=== PATIENT | male | born 1975 | race Caucasian/White ===

== ENCOUNTER → 2017-10-18 16:00 | Outpatient (CLI) | payer OTHER, SELFPAY | PROVIDERS: Visit Provider Otolaryngology | DX: J02.9 Acute pharyngitis, unspecified (principal) | CPT/HCPCS: 87070 ==

== ENCOUNTER → 2018-01-02 15:34 | Outpatient (CLI) | payer OTHER, SELFPAY ==
--- NOTE | 2018-01-02 15:42 | RAD_ITS ---
STUDY: X-RAY - LUMBAR SPINE REASON FOR EXAM: Male, 42 years old. chronic back pain TECHNIQUE: 5 view(s) of the lumbar spine were obtained. # of Images: 5 COMPARISON: None FINDINGS: Normal lumbar lordosis. There is no substantial scoliosis. There is a normal alignment of the vertebrae. Normal vertebral bodies and endplates. There is multi-level degenerative disc disease with multi-level disc space narrowing at T12-L1, L3-4 and L5-S1. The soft tissue structures are unremarkable. RAD/L/S Spine Min 4 Views IMPRESSION: Degenerative changes of the spine, as detailed above. Electronically Signed: Julissa Dean MD at 15:31 EDT Tel , Service support ,
== END ==
PROVIDERS: Family Provider Family Medicine; PCP Family Medicine; Referring Provider Family Medicine; Visit Provider Family Medicine
DX: M54.9 Dorsalgia, unspecified (principal); G89.29 Other chronic pain
CPT/HCPCS: 72110

== ENCOUNTER → 2018-02-28 12:03 | Outpatient (CLI) | payer OTHER, SELFPAY ==
--- NOTE | 2018-02-28 | LES_PTH ---
PATIENT: ARNOL PETERSON Jr. LOC: [place] U#:[id number] AGE/SX: 49/M ROOM: RE02/28/[address]: Dr. Noe Munroe MD : 1975 BED: DIS: SPEC #: [id number] RECD: 02/28/18 14:37 STATUS: CONI BUFFY #: [id number] LONI: 02/28/18 00:[address]: Noe Munroe DEPT: SURGICAL PATHOLOGY RECD BY: Rohan Frazier Tissues: Skin of arm Procedures: Surgery Specimen Level IV HEADER OPERATION: Left arm excision PRE-OP DIAGNOSIS: Left arm lesion TISSUE SUBMITTED: Left arm lesion MICROSCOPIC DIAGNOSIS Left arm lesion, excisional biopsy: Basal cell carcinoma, completely excised in the planes of sections examined. Solar elastosis. SJ:etelvina 03/03/18 COMMENT Case has been reviewed in consultation with Dr. Paredes who concurs with the above diagnosis. IDC:AM MICROSCOPIC DESCRIPTION Slides are reviewed. GROSS DESCRIPTION Received in fixative is one container labeled with the patient's name and designated left arm lesion. The specimen consists of a piece of fleiciano-white skin ellipse measuring 2.5 x 1 cm and up to 0.3 cm in thickness. The specimen is inked, serially sectioned and submitted entirely in one cassette. / SJ:rg 02/28/18 TC:0 CPT: 07419
--- OUTSIDE RECORDS SUMMARY | 2018-04-16 06:49 | XMS RPT_ITS ---
:1975 Author Organization [facility] Care Team Providers Name Role Phone Noe Munroe Attending Unavailable Noe Munroe Referring Unavailable Noe Munroe Primary Care Unavailable Noe Munroe Attending Unavailable Noe Munroe Referring Unavailable Noe Munroe Primary Care Unavailable Ned Barragan Attending Unavailable Jagdeep Iglesias Primary Care Unavailable Ned Barragan Referring Unavailable Noe Munroe Attending Unavailable Noe Munroe Referring Unavailable Noe Munroe Primary Care Unavailable Noe Munroe Attending Unavailable Noe Munroe Referring Unavailable Noe Munroe Primary Care Unavailable PROBLEMS PROBLEMS DATE TYPE CONDITION / CODE ATTENDING STATUS SOURCE 04/08/2018 Unknown 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, Community unspecified / Hospital G62.9(ICD-10) Repository 01/02/2018 Unknown M54.9 - Noe Munroe Active [place] Dorsalgia, Community unspecified / Hospital M54.9(ICD-10) Repository 10/19/2017 Unknown J02.9 - Acute Wartmann, Active [place] pharyngitis, Ned Community unspecified / Hospital J02.9(ICD-10) Repository PROCEDURES PROCEDURES No Procedure Records FoundRESULTS RESULTS VITAMIN B1, THIAMINE Collected: 03/28/2018 Status: F Source: [place] 4:49 PM [facility] REPOSITORY Order Comment: Comments: [id number] B6 RF PROTECT FROM LIGHT TYPE CODE TESTS RESULT OUT OF RANGE REFERENCE UNITS LAB L3300.8000 Normal VIT B1 Result Comment: TEST RESULT LIMITS Vitamin B1 (Thiamine), Blood Vit. B1, Whole Blood 125.9 nmol/L 66.5 - 200.0 Disclaimer: This test was developed and its performance characteristics determined by [facility]. It has not been cleared or approved by the Food and Drug Administration. TESTING PERFORMED AT [facility]. ORIGINAL REPORT ON FILE IN LAB CONTAINS ADDITIONAL TEST SITE INFORMATION. Performed By: #### L3300.8000 #### [facility] (refer to report for specific site) refer to report for address and phone number CERV SPINE 4 OR 5 Observed: 03/28/2018 Status: F Source: [place] VIEWS 4:46 PM [facility] REPOSITORY [facility] Imaging Services [address] [place] [address] Cerv Spine 4 or 5 Views MR#: [id number] Acct: [id number] Name: PETERSONDIANNARNOL LAURA Connelly Rep #: [id number] : 1975 M 42 From: Nicholas Schmitt MD PCP: Noe Munroe MD Status: REG CLI Study: Cerv Spine 4 or 5 Views Date of Exam: 03/28/18 Exam# [id number] Ordering Dr: Noe Munroe MD HISTORY: Back Pain COMPARISON: None FINDINGS: XR Spine Cervical 5 Views: Straightening of the cervical spine with mild reversal of the normal cervical lordosis at the C5-6 level. Cervical vertebra are normal in height. No fracture or suspicious bony lesion. C5-6 mild disc space narrowing accompanied by minor anterior endplate spurring. The posterior elements appear intact. Neural foramina are patent. The C1- C2 relationship is on remarkable. RAD/Cerv Spine 4 or 5 Views IMPRESSION: C5-6 early degenerative disc disease with loss of the normal cervical lordosis at 0816 Reported and signed by: Nicholas Schmitt MD Electronically Signed: Nicholas Schmitt, at 8:15 EST Tel , Service support , CC: Noe Munroe MD Otr Owner Operator: Signed SHOULDER MIN 2 VIEWS Observed: 03/28/2018 Status: F Source: [place] 4:46 PM [facility] REPOSITORY [facility] Imaging Services [address] [place] [address] Shoulder min 2 Views MR#: [id number] Acct: [id number] Name: ARNOL PETERSON JrNi Rep #: [id number] : 1975 M 42 From: Lulu Gil MD PCP: Noe Munroe MD Status: REG CLI Study: Shoulder min 2 Views Date of Exam: 03/28/18 Exam# [id number] Ordering Dr: Noe Munroe MD STUDY: X-RAY - RIGHT SHOULDER REASON FOR EXAM: Male, 42 years old. Pain TECHNIQUE: 4 view(s) of the shoulder. COMPARISON: None. FINDINGS: Normal glenohumeral articulation. Normal acromioclavicular joint. Normal acromion. Normal humeral head and visualized proximal humerus. The soft tissue structures are unremarkable. Radiopaque density over the right apex 0.76 cm. Normal visualized pulmonary apex. RAD/Shoulder min 2 Views IMPRESSION: Normal x-ray examination of the shoulder. Radiopaque foreign body. Electronically Signed: Lulu Gil MD at 1:54 EST , Service support , CC: Noe Munroe MD Otr Owner Operator: Signed VITAMIN B12 Collected: 03/28/2018 Status: F Source: [place] 4:45 PM [facility] REPOSITORY TYPE CODE TESTS RESULT OUT OF RANGE REFERENCE UNITS LAB L503.0105 211-911 pg/mL Normal Vitamin B12 829 Performed By: #### L503.0105 #### [facility] [address] [place], [address] LESION (CHOOSE SITE) Observed: 02/28/2018 Status: F Source: [place] 12:00 AM [facility] REPOSITORY Patient: ARNOL PETERSON Jr. : 1975 (42/M) Acct Num: [id number] Phys: Noe Munroe MD Unit Num: [id number] Loc: LABSPEC Specimen: [id number] Received: 02/28/18 - 1437 Spec Type: Lesion TISSUES 1 TISSUES: Skin of arm COMMENT Case has been reviewed in consultation with Dr. Paredes who concurs with the above diagnosis. IDC:AM GROSS DESCRIPTION Received in fixative is one container labeled with the patient's name and designated left arm lesion. The specimen consists of a piece of feliciano-white skin ellipse measuring 2.5 x 1 cm and up to 0.3 cm in thickness. The specimen is inked, serially sectioned and submitted entirely in one cassette. / ROBYN:etelvina 02/28/18 TC:0 CPT: 92147 HEADER OPERATION: Left arm excision PRE-OP DIAGNOSIS: Left arm lesion TISSUE SUBMITTED: Left arm lesion MICROSCOPIC DESCRIPTION Slides are reviewed. MICROSCOPIC DIAGNOSIS Left arm lesion, excisional biopsy: Basal cell carcinoma, completely excised in the planes of sections examined. Solar elastosis. ROBYN:etelvina 03/03/18 Signed Carlos Herrera MD 03/03/18 <signature on file> Performed By: #### PLES #### [facility] [address] [place], [address] L/S SPINE MIN 4 Observed: 01/02/2018 Status: F Source: [place] VIEWS 3:42 PM [facility] REPOSITORY [facility] Imaging Services [address] [place] [address] L/S Spine Min 4 Views MR#: [id number] Acct: [id number] Name: ARNOL PETERSON Rep #: [id number] : 1975 M 42 From: Julissa Dean MD PCP: Noe Munroe MD Status: REG CLI Study: L/S Spine Min 4 Views Date of Exam: 01/02/18 Exam# [id number] Ordering Dr: Noe Munroe MD STUDY: X-RAY - LUMBAR SPINE REASON FOR EXAM: Male, 42 years old. chronic back pain TECHNIQUE: 5 view(s) of the lumbar spine were obtained. # of Images: 5 COMPARISON: None FINDINGS: Normal lumbar lordosis. There is no substantial scoliosis. There is a normal alignment of the vertebrae. Normal vertebral bodies and endplates. There is multi-level degenerative disc disease with multi-level disc space narrowing at T12- L1, L3-4 and L5-S1. The soft tissue structures are unremarkable. RAD/L/S Spine Min 4 Views IMPRESSION: Degenerative changes of the spine, as detailed above. Electronically Signed: Julissa Dean MD at 15:31 EDT Tel , Service support , CC: Noe Munroe MD Otr Owner Operator: Signed Observed: 10/18/2017 Status: F Source: [place] CULTURE, THROAT 10:50 AM [facility] REPOSITORY Culture, Throat Mixed normal respiratory lala. No Haemophilus, Streptococcus pneumoniae, beta-hemolytic Streptococcus or Staphylococcus aureus isolated. Performed By: #### M100.1000 #### [facility] [address] [place], [address] ALLERGIES ALLERGIES No Allergies Records FoundENCOUNTERS ENCOUNTERS ADMIT/DISCHARGE ACCOUNT ADMITTING ENCOUNTER LOCATION SOURCE NUMBER CLASS 04/04/2018 [id number] Ambulatory [place] ing:MTLAB Repository 03/28/[id number] ing:MTLAB Repository 02/28/2018 [id number] [facility] ing:LABSPEC Repository 01/02/2018 [id number] Ambulatory [place] [facility] ing:MTRAD Repository 10/18/2017 [id number] [facility] ing:LABSPEC Repository PAYERS PAYERS ENCOUNTER GUARANTOR PAYER SUBSCRIBER SOURCE 04/04/2018 ARNOL SANCHEZ [facility] ARNOL PETERSON Jr.40 Insurance:MEDICAL PETERSON : [facility] [id number] [address]Mqn: Number: Repository [id number] (HP) Date:3164-14-38ZK[address] [address]HQ: 04/04/2018 Secondary NOT GIVENUNK [place] Insurance:SELF PAY [facility] Number: Effective Repository Date:2018-04-04 03/28/2018 ARNOL SANCHEZ [facility].40 Insurance:MEDICAL PETERSON JrNi: [facility] [id number] Medical Center [address]Uve: Number: Repository [id number] (HP) Date:2185-89-23NE [address] [address]MJ: 03/28/2018 Secondary NOT GIVENUNK [place] Insurance:SELF PAY [facility] Number: Effective Repository Date:2018-03-28 02/28/2018 [facility] ARNOL PETERSON Jr.40 Insurance:MEDICAL PETERSON Jr.: Community FORCE [facility] [id number] Medical Center [address]Rlq: Number: Repository [id number] (HP) Date:7417-42-30JJ [place] [id number]: 02/28/2018 Secondary NOT GIVENUNK [facility] Insurance:SELF PAY [facility] Number: Effective Repository Date:2018-02-28 01/02/2018 [facility] LAURA LINDERE40 FORCE Insurance:MEDICAL STEELEDOB: [facility] [id number] Hospital [address]Ejn: (330) Number: Repository [phone] () [id number] Date:8977-59-99NM [address] [address]XB: 01/02/2018 Secondary NOT GIVENUNK [place] Insurance:SELF PAY [facility] Number: Effective Repository Date:2018-01-02 10/18/2017 [facility] LAURA LINDERE40 FORCE Insurance:MEDICAL STEELEDOB: [facility] [id number] Hospital [address]Cgn: (330) Number: Repository [phone] () [id number] Date:0923-06-91CJ [address] [address]BQ: 10/18/2017 Secondary NOT GIVENUNK [place] Insurance:SELF PAY [facility] Number: Effective Repository Date:2017-10-18
== END ==
PROVIDERS: Family Provider Family Medicine; PCP Family Medicine; Referring Provider Family Medicine; Visit Provider Family Medicine
DX: C44.619 Basal cell carcinoma of skin of left upper limb, including shoulder (principal); L57.8 Other skin changes due to chronic exposure to nonionizing radiation
CPT/HCPCS: 88305

== ENCOUNTER → 2018-03-28 16:42 | Outpatient (CLI) | payer OTHER, SELFPAY ==
--- NOTE | 2018-03-28 16:45 | RAD_ITS ---
HISTORY: Back Pain COMPARISON: None FINDINGS: XR Spine Cervical 5 Views: Straightening of the cervical spine with mild reversal of the normal cervical lordosis at the C5-6 level. Cervical vertebra are normal in height. No fracture or suspicious bony lesion. C5-6 mild disc space narrowing accompanied by minor anterior endplate spurring. The posterior elements appear intact. Neural foramina are patent. The C1-C2 relationship is on remarkable. RAD/Cerv Spine 4 or 5 Views IMPRESSION: C5-6 early degenerative disc disease with loss of the normal cervical lordosis at 0816 Reported and signed by: Nicholas Schmitt MD Electronically Signed: Nicholas Schmitt, at 8:15 EST Tel , Service support ,
--- NOTE | 2018-03-28 16:45 | RAD_ITS ---
STUDY: X-RAY - RIGHT SHOULDER REASON FOR EXAM: Male, 42 years old. Pain TECHNIQUE: 4 view(s) of the shoulder. COMPARISON: None. FINDINGS: Normal glenohumeral articulation. Normal acromioclavicular joint. Normal acromion. Normal humeral head and visualized proximal humerus. The soft tissue structures are unremarkable. Radiopaque density over the right apex 0.76 cm. Normal visualized pulmonary apex. RAD/Shoulder min 2 Views IMPRESSION: Normal x-ray examination of the shoulder. Radiopaque foreign body. Electronically Signed: Lulu Gil MD at 1:54 EST , Service support ,
[2018-03-28 18:22] LABS: Vitamin B12 829 pg/mL (211-911)
== END ==
PROVIDERS: Family Provider Family Medicine; PCP Family Medicine; Referring Provider Family Medicine; Visit Provider Family Medicine
DX: M54.2 Cervicalgia (principal); M75.80 Other shoulder lesions, unspecified shoulder; G62.9 Polyneuropathy, unspecified
CPT/HCPCS: 72050; 73030; 82607; 84425

== ENCOUNTER → 2018-04-04 10:22 | Outpatient (CLI) | payer OTHER, SELFPAY ==
--- OUTSIDE RECORDS SUMMARY | 2018-06-08 19:13 | XMS RPT_ITS ---
[...] 01/02/2018 Unknown M54.9 - Noe Munroe Active [place] Dorsalgia, Community unspecified / Hospital M54.9(ICD-10) Repository 10/19/2017 Unknown J02.9 - Acute Wartmann, Active [place] pharyngitis, Ned Community unspecified / Hospital J02.9(ICD-10) Repository PROCEDURES PROCEDURES No Procedure Records FoundRESULTS RESULTS VITAMIN B1, THIAMINE Collected: 03/28/2018 Status: F Source: [place] 4:49 PM [facility] REPOSITORY Order Comment: Comments: [id number] B6 RF PROTECT FROM LIGHT TYPE CODE TESTS RESULT OUT OF RANGE REFERENCE UNITS LAB L3300.8000 Normal VIT B1 Result Comment: TEST RESULT LIMITS Vitamin B1 (Thiamine), Blood Vit. B1, Whole Blood 125.9 nmol/L 66.5 - 200.0 Disclaimer: This test was developed and its performance characteristics determined by [facility]. It has not been cleared or approved by the Food and Drug Administration. TESTING PERFORMED AT [facility]. ORIGINAL REPORT ON FILE IN LAB CONTAINS ADDITIONAL TEST SITE INFORMATION. Performed By: #### L3300.8000 #### [facility] (refer to report for specific site) refer to report for address and phone number CERV SPINE 4 OR 5 Observed: 03/28/2018 Status: F Source: [place] VIEWS 4:46 PM [facility] REPOSITORY [facility] Imaging Services [address] [place] [address] Cerv Spine 4 or 5 Views MR#: [id number] Acct: [id number] Name: PETERSONDIANNARNOL LAURA Connelly Rep #: [id number] : 1975 M 42 From: Nicholas Schmitt MD PCP: Noe Munroe MD Status: REG CLI Study: Cerv Spine 4 or 5 Views Date of Exam: 03/28/18 Exam# [id number] Ordering Dr: Noe Munroe MD HISTORY: Back [...] Service support , CC: Noe Munroe MD Deputy Sheriff: Signed SHOULDER MIN 2 VIEWS Observed: 03/28/2018 Status: F Source: [place] 4:46 PM [facility] REPOSITORY [facility] Imaging Services [address] [place] [address] Shoulder min 2 Views MR#: [id number] Acct: [id number] Name: ARNOL PETERSON JrNi Rep #: [id number] : 1975 M 42 From: Lulu Gil MD PCP: Noe Munroe MD Status: REG CLI Study: Shoulder min 2 Views Date of Exam: 03/28/18 Exam# [id number] Ordering Dr: Noe Munroe MD STUDY: X-RAY [...] Service support , CC: Noe Munroe MD Deputy Sheriff: Signed VITAMIN B12 Collected: 03/28/2018 Status: F Source: [place] 4:45 PM [facility] REPOSITORY TYPE CODE TESTS RESULT OUT OF RANGE REFERENCE UNITS LAB L503.0105 211-911 pg/mL Normal Vitamin B12 829 Performed By: #### L503.0105 #### [facility] [address] [place], [address] LESION (CHOOSE SITE) Observed: 02/28/2018 Status: F Source: [place] 12:00 AM [facility] REPOSITORY Patient: ARNOL PETERSON Jr. : 1975 (42/M) Acct Num: [id number] Phys: Noe Munroe MD Unit Num: [id number] Loc: LABSPEC Specimen: [id number] Received: 02/28/18 - 1437 Spec Type: Lesion [...] one cassette. / ROBYN:etelvina 02/28/18 TC:0 CPT: 94373 HEADER OPERATION: Left arm excision PRE-OP DIAGNOSIS: Left arm lesion TISSUE SUBMITTED: Left arm lesion MICROSCOPIC DESCRIPTION Slides are reviewed. MICROSCOPIC DIAGNOSIS Left arm lesion, excisional biopsy: Basal cell carcinoma, completely excised in the planes of sections examined. Solar elastosis. ROBYN:etelvina 03/03/18 Signed Carlos Herrera MD 03/03/18 <signature on file> Performed By: #### PLES #### [facility] [address] [place], [address] L/S SPINE MIN 4 Observed: 01/02/2018 Status: F Source: [place] VIEWS 3:42 PM [facility] REPOSITORY [facility] Imaging Services [address] [place] [address] L/S Spine Min 4 Views MR#: [id number] Acct: [id number] Name: ARNOL PETERSON Rep #: [id number] : 1975 M 42 From: Julissa Dean MD PCP: Noe Munroe MD Status: REG CLI Study: L/S Spine Min 4 Views Date of Exam: 01/02/18 Exam# [id number] Ordering Dr: Noe Munroe MD STUDY: X-RAY [...] Service support , CC: Noe Munroe MD Deputy Sheriff: Signed Observed: 10/18/2017 Status: F Source: [place] CULTURE, THROAT 10:50 AM [facility] REPOSITORY Culture, Throat Mixed normal respiratory lala. No Haemophilus, Streptococcus pneumoniae, beta-hemolytic Streptococcus or Staphylococcus aureus isolated. Performed By: #### M100.1000 #### [facility] [address] [place], [address] ALLERGIES ALLERGIES No Allergies Records FoundENCOUNTERS ENCOUNTERS ADMIT/DISCHARGE ACCOUNT ADMITTING ENCOUNTER LOCATION SOURCE NUMBER CLASS 04/04/2018 [id number] Ambulatory [place] ing:MTLAB Repository 03/28/[id number] ing:MTLAB Repository 02/28/2018 [id number] [facility] ing:LABSPEC Repository 01/02/2018 [id number] Ambulatory [place] [facility] 3 [facility] ing:MTRAD Repository 10/18/2017 [id number] [facility] ing:LABSPEC Repository PAYERS PAYERS ENCOUNTER GUARANTOR PAYER SUBSCRIBER SOURCE 04/04/2018 ARNOL SANCHEZ [facility] ARNOL PETERSON Jr.40 Insurance:MEDICAL PETERSON : [facility] [id number] [facility] Hospitals [address]Mbc: Number: Repository [id number] (HP) Date:6897-31-00[address] [address]BN: 04/04/2018 Secondary NOT GIVENUNK [place] Insurance:SELF PAY [facility] Number: Effective Repository Date:2018-04-04 03/28/2018 ARNOL SANCHEZ [facility]ALTH[facility] Jr.40 Insurance:MEDICAL PETERSON JrNi: [facility] [id number] of New Mexico Hospitals [address]Txv: Number: Repository [id number] (HP) Date:7644-90-88MQ [address] [address]DW: 03/28/2018 Secondary NOT GIVENUNK [place] Insurance:SELF PAY [facility] Number: Effective Repository Date:2018-03-28 02/28/2018 [facility] ARNOL PETERSON Jr.40 Insurance:MEDICAL PETERSON Jr.: Community FORCE [facility] [id number] of New [facility] Hospitals [address]Ncl: Number: Repository [id number] (HP) Date:1995-81-88PD [place] [id number]: 02/28/2018 Secondary NOT GIVENUNK [place] Insurance:SELF PAY [facility] Number: Effective Repository Date:2018-02-28 01/02/2018 [facility] LAURA LINDERE40 FORCE Insurance:MEDICAL STEELEDOB: [facility] [id number] Hospital [address]Aih: (330) Number: Repository [phone] () [id number] Date:4043-26-13LF [address] [address]WQ: 01/02/2018 Secondary NOT GIVENUNK [place] Insurance:SELF PAY [facility] Number: Effective Repository Date:2018-01-02 10/18/2017 [facility] LUARA LINDERE40 FORCE Insurance:MEDICAL STEELEDOB: [facility] [id number] Hospital [address]Kmc: (330) Number: Repository [phone] () [id number] Date:8576-64-34ST [address] [address]BB: 10/18/2017 Secondary NOT GIVENUNK [place] Insurance:SELF PAY [facility] Number: Effective Repository Date:2017-10-18
== END ==
PROVIDERS: Family Provider Family Medicine; PCP Family Medicine; Referring Provider Family Medicine; Visit Provider Family Medicine
DX: G62.9 Polyneuropathy, unspecified (principal)

== ENCOUNTER → 2020-10-25 15:45 | Outpatient (CLI) | payer OTHER, SELFPAY ==
--- NOTE | 2020-10-25 15:55 | CT_ITS ---
STUDY: CT RIGHT LOWER EXTREMITY WITHOUT CONTRAST REASON FOR EXAM: Right knee osteoarthritis, surgical planning. TECHNIQUE: Transaxial CT imaging of the lower extremity was performed. Coronal and sagittal images were reformatted. Individualized dose optimization techniques were used for this CT. COMPARISON: None. FINDINGS: Knee: There is arthrosis of the medial femorotibial compartment with marginal osteophytes, subchondral eburnation of the medial tibial plateau and joint space narrowing (coronal reconstructions 26-30). There are marginal osteophytes and joint space narrowing of the mesial aspect of the lateral femorotibial compartment (coronal reconstruction 28). There are marginal osteophytes and joint space narrowing of the medial aspect of the patellofemoral articulation (axial image 258). Normal proximal tibiofibular articulation. There is a joint effusion. The quadriceps tendon is grossly normal. The patellar tendon is grossly normal. Normal Hoffa''s fat pad. There are multiple posterior intra-articular bodies (coronal reconstructions 37-42). Hip: There is a small subchondral cyst of the lateral acetabulum. There is preservation of joint space of the right hip. Ankle: Normal tibiotalar, posterior subtalar, talonavicular and calcaneocuboid articulations. CT/Extremity Lower without Contra IMPRESSION: Right knee osteoarthritis. Electronically Signed: Colton Lozada MD at 11:09 EDT Tel , Service support ,
== END ==
PROVIDERS: PCP Family Medicine; Referring Provider Physician Assistant Surgical; Visit Provider Physician Assistant Surgical
DX: M17.11 Unilateral primary osteoarthritis, right knee (principal)
CPT/HCPCS: 73700

== ENCOUNTER → 2021-01-17 17:13 | Outpatient (CLI) | payer OTHER, SELFPAY ==
--- NOTE | 2021-01-17 17:16 | RAD_ITS ---
STUDY: X-RAY - ABDOMEN/PELVIS REASON FOR EXAM: Male, 45 years old. LEFT FLANK PAIN/ KUB TECHNIQUE: Single AP view of the abdomen / pelvis. COMPARISON: None. FINDINGS: Normal visualized lung bases. There is an unremarkable bowel gas pattern. The visualized liver, spleen and kidneys are grossly normal in size and morphology. Normal soft tissue structures. Normal visualized osseous structures. RAD/Abdomen Single View IMPRESSION: Normal x-ray examination of the abdomen and pelvis. Electronically Signed: Aba Moraes MD at 8:47 EDT Tel , Service support ,
== END ==
PROVIDERS: PCP Family Medicine; Referring Provider Family Medicine; Visit Provider Family Medicine
DX: R10.9 Unspecified abdominal pain (principal)
CPT/HCPCS: 74018

== ENCOUNTER → 2021-07-14 | Outpatient (CLI) | payer BC, SELFPAY ==
[2021-07-14 10:20] LABS: Absolute Lymphocyte Count 1.53 X10^3/uL (0.83-4.51); Basophil# 0.06 X10^3/uL; Basophil% 0.8 % (0-1); Eosinophil# 0.05 X10^3/uL; Eosinophils% 0.7 % (0-5); Hematocrit 41.2 % (40-54); Hemoglobin 14.3 g/dL (13.0-16.5); Lymphocyte # 1.53 X10^3/ul (0.83-4.51); Lymphocyte % 21.5 % (19-41); Mean Corp Hgb Conc 34.7 g/dL (32-36); Mean Corpuscular Hgb 30.1 pg (27.0-32.0); Mean Corpuscular Volume 86.7 fL (80-94); Mean Platelet Vol. 10.8 fl (6.2-12.0); Monocyte# 0.48 X10^3/uL; Monocyte% 6.7 % (0-10); NRBC Flagged by Analyzer 0 % (0-5); Neutrophil # 4.99 X10^3/uL (2.7-7.7); Platelet Count 202 K/mm3 (150-450); RBC Distribution Width CV 12.8 % (11.6-14.6); RBC Distribution Width SD 40.4 fl (35.1-43.9); Red Blood Count 4.75 M/mm3 (4.6-6.2); White Blood Count 7.1 K/mm3 (4.4-11.0)
[2021-07-14 11:04] LABS: Anion Gap 5 (5-15); BUN 5 mg/dL (7-18); BUN/Creat Ratio 5.7 RATIO (10-20); Calcium,Total 8.5 mg/dL (8.5-10.1); Chloride 106 mmol/L (98-107); Cholesterol 175 mg/dL (200); Creatinine, Serum 0.88 mg/dL (0.70-1.30); EST Glomerular Filtration Rate 100 mL/min (>60); Est Glom Filt Rate - Afr Amer 121 mL/min (>60); Glucose 103 mg/dL (74-106); High Density Lipoprotein 45 mg/dL; Potassium 3.8 mmol/L (3.5-5.1); Sodium Level 137 mmol/L (136-145); Thyroid Stim Hormone (TSH) 2.62 uIU/mL (0.358-3.74); Triglycerides 110 mg/dL; Very Low Density Lipoprotein 22 mg/dL (5-40)
== END | disposition home or self-care (01) ==
LOC: MFPLAB 08:13
PROVIDERS: PCP Family Medicine; Referring Provider Family Medicine; Visit Provider Family Medicine
DX: Z13.220 Encounter for screening for lipoid disorders (principal); Z13.29 Encounter for screening for other suspected endocrine disorder
CPT/HCPCS: 36415; 80048; 80061; 84443; 85025

== ENCOUNTER → 2023-10-17 | Outpatient (CLI) | payer BC, SELFPAY ==
[2023-10-17 10:19] LABS: Absolute Lymphocyte Count 1.39 X10^3/uL (0.83-4.51); Absolute Neutrophil Count 4.6 X10^3/uL (2.0-7.7); Basophil# 0.05 X10^3/uL; Basophil% 0.8 % (0-1); Eosinophil# 0.06 X10^3/uL; Eosinophils% 0.9 % (0-5); Hematocrit 42.2 % (40-54); Hemoglobin 14.3 g/dL (13.0-16.5); Lymphocyte # 1.39 X10^3/ul (0.83-4.51); Lymphocyte % 21.1 % (19-41); Mean Corp Hgb Conc 33.9 g/dL (32-36); Mean Corpuscular Volume 85.6 fL (80-94); Mean Platelet Vol. 11.4 fl (6.2-12.0); Monocyte# 0.48 X10^3/uL; Monocyte% 7.3 % (0-10); NRBC Flagged by Analyzer 0 % (0-5); Neutrophil # 4.57 X10^3/uL (2.7-7.7); Neutrophil % 69.3 % (47-70); Platelet Count 161 K/mm3 (150-450); RBC Distribution Width CV 12.6 % (11.6-14.6); RBC Distribution Width SD 39.1 fl (35.1-43.9); Red Blood Count 4.93 M/mm3 (4.6-6.2); White Blood Count 6.6 K/mm3 (4.4-11.0)
[2023-10-17 10:31] LABS: AST(SGOT) 18 U/L (15-37); Alanine Aminotransfer ALT/SGPT 31 U/L (16-61); Albumin, Serum 3.7 g/dL (3.2-5.0); Alkaline Phosphatase 93 U/L (45-117); Anion Gap 4 (5-15); BUN 12 mg/dL (7-18); BUN/Creat Ratio 13.1 RATIO (10-20); Calcium,Total 9.4 mg/dL (8.5-10.1); Chloride 106 mmol/L (98-107); Cholesterol 221 mg/dL (200); Creatinine, Serum 0.92 mg/dL (0.70-1.30); EST Glomerular Filtration Rate 94 mL/min (>60); Est Glom Filt Rate - Afr Amer 114 mL/min (>60); Globulin 3.6 g/dL (2.2-4.2); Glucose 108 mg/dL (74-106); High Density Lipoprotein 39 mg/dL; PSA,Total - Annual Screen 0.73 ng/mL (0.00-4.00); Potassium 4.5 mmol/L (3.5-5.1); Protein, Total 7.3 g/dL (6.4-8.2); Sodium Level 136 mmol/L (136-145); Triglycerides 176 mg/dL; Very Low Density Lipoprotein 35 mg/dL (5-40)
[2023-10-17 16:21] LABS: Thyroid Stim Hormone (TSH) 2.49 uIU/mL (0.358-3.74)
== END | disposition home or self-care (01) ==
PROVIDERS: PCP Family Medicine; Visit Provider Family Medicine
DX: Z00.00 Encounter for general adult medical examination without abnormal findings (principal); Z12.5 Encounter for screening for malignant neoplasm of prostate
CPT/HCPCS: 36415; 80053; 80061; 83036; 84153; 84443; 85025; G0103